=== PATIENT | male | born 1980 | race African-American/Black ===

== ENCOUNTER 2017-08-31 23:06 | Emergency (ER) | payer SELFPAY ==
[2017-08-31 23:10] VITALS: BP 115/75; PULSE 80; RESP 16; TEMP 98.7; O2SAT 98
--- NOTE | 2017-08-31 23:36 | PD ---
HPI Chief Complaint: Pain: Acute or Chronic Time Seen by Provider: 23:20 Travel History International Travel<30 days: No Contact w/Intl Traveler<30days: No Traveled to known affect area: No History of Present Illness HPI Patient is a 37-year-old male presenting to the emergency department for evaluation of his hernia. Patient states that the police woke him up from where he was sleeping (he is homeless) and startled him causing him to have pain in his right groin. He also states that approximately 1 hour prior to falling asleep which would be around 9 PM this evening he reported feeling mildly nauseated and had mild abdominal pain. He reports the pain is epigastric. He reports similar pain in the past. He denies any vomiting, diarrhea, fevers, chills. He states that he feels constipated and only had a small bowel movement this morning. He reports his pain is a 3 out of 10. PFSH Past Medical History GERD: Yes Schizophrenia: Yes Social History Tobacco Use: No Allergies-Medications (Allergen,Severity, Reaction): Coded Allergies: No Known Allergies (Unverified , 08/31/17) Reported Meds & Prescriptions Reported Meds & Active Scripts Active No Active Prescriptions or Reported Medications Review of Systems Except as stated in HPI: all other systems reviewed are Neg Gastrointestinal: Positive: Abdominal Pain Physical Exam Narrative GENERAL: Thin, well-developed, alert male. Presenting in no acute distress. SKIN: Warm and dry. HEAD: Atraumatic. Normocephalic. EYES: Pupils equal and round. No scleral icterus. No injection or drainage. ENT: No nasal bleeding or discharge. Mucous membranes pink and moist. NECK: Trachea midline. No JVD. CARDIOVASCULAR: Regular rate and rhythm. RESPIRATORY: No accessory muscle use. Clear to auscultation. Breath sounds equal bilaterally. GASTROINTESTINAL: Abdomen soft, non-tender, nondistended. Hepatic and splenic margins not palpable. No rebound, no guarding. Positive bowel sounds. Right inguinal hernia easily reducible. MUSCULOSKELETAL: Extremities without clubbing, cyanosis, or edema. No obvious deformities. NEUROLOGICAL: Awake and alert. No obvious cranial nerve deficits. Motor grossly within normal limits. Five out of 5 muscle strength in the arms and legs. Normal speech. PSYCHIATRIC: Appropriate mood and affect; insight and judgment normal. Data Data Last Documented VS Vital Signs Date Time Temp Pulse Resp B/P (MAP) Pulse Ox O2 Delivery O2 Flow Rate FiO2 08/31/17 23:10 98.7 80 16 115/75 (88) 98 Orders Orders Abdomen, Kub Only (08/31/17 ) [facility] Medical Decision Making Medical Screen Exam Complete: Yes Emergency Medical Condition: Yes Interpretation(s) Vital Signs Date Time Temp Pulse Resp B/P (MAP) Pulse Ox O2 Delivery O2 Flow Rate FiO2 08/31/17 23:10 98.7 80 16 115/75 (88) 98 Differential Diagnosis Constipation versus obstruction versus malingering versus incarcerated hernia versus other Narrative Course Patient is well-appearing 37-year-old male presenting to emergency department for evaluation of his hernia after being startled by the police. He then reported that he is constipated and had abdominal pain. Abdominal exam is benign. Will obtain a KUB. Patient is otherwise well-appearing. KUB is unremarkable. It appears patient could be malingering due to his current undomiciled status. Patient was encouraged to follow-up with a primary doctor regarding his hernia. He was encouraged to increase oral fluid intake and eat a diet high in fiber. He was encouraged to return to emergency department any new or worsening symptoms. Patient is stable for discharge. Diagnosis Primary Impression: Inguinal hernia Qualified Codes: K40.90 - Unilateral inguinal hernia, without obstruction or gangrene, not specified as recurrent Referrals: [facility] Patient Instructions: General Instructions, Inguinal Hernia (DC) Additional Instructions: Follow-up at the [facility] Obtain groin support as discussed Return to emergency department for any new or worsening symptoms Med/Other Pt SpecificInfo: No Change to Meds Scripts No Active Prescriptions or Reported Meds Disposition: 01 DISCHARGE HOME Condition: Stable Lalita Cheema August 31, 2017 23:36
--- NOTE | 2017-09-01 00:05 | RADRPT ---
EXAM DATE/TIME: 08/31/2017 23:45 [facility] COMPARISON: No previous studies available for comparison. INDICATIONS : Abdominal pain. MEDICAL HISTORY : None. SURGICAL HISTORY : None. ENCOUNTER: Initial ACUITY: 1 day PAIN SCORE: 3/10 LOCATION: Bilateral Abdomen FINDINGS: Supine view of the abdomen was performed. The abdominal bowel gas pattern is normal. No abnormal ma sses, calcifications, or organomegaly is seen. The osseous structures are unremarkable. CONCLUSION: Normal bowel gas pattern. Micah Bryant Jr., MD on September 01, 2017 at 0:03 Board Certified Radiologist. This report was verified electronically.
== END 2017-09-01 05:53 | disposition home or self-care (01) ==
LOC: NEPD 23:06
DX: K40.90 Unilateral inguinal hernia, without obstruction or gangrene, not specified as recurrent (principal); K21.9 Gastro-esophageal reflux disease without esophagitis; F20.9 Schizophrenia, unspecified; K59.00 Constipation, unspecified; Z59.0 Homelessness
CPT/HCPCS: 74018; 99283